=== PATIENT | female | born 1990 | race Caucasian/White ===

== ENCOUNTER 2019-02-05 18:05 | Emergency (ER) | payer SELFPAY ==
[~2019-02-05] VITALS: Ht 170.2 cm; Wt 63.6 kg
[2019-02-05 18:08] VITALS: Ht 170.2 cm; Wt 63.6 kg
[2019-02-05 19:11] LABS: BASOPHILS 1.1 % (0-2); EOSINOPHILS 0.5 % (0-7); HEMATOCRIT 38.3 % (36.0-48.0); HEMOGLOBIN 13.1 g/dL (12-16); LYMPHOCYTES 43.8 % (15-50); MCH 30.3 pg (26.0-34.0); MCHC 34.2 g/dL (31.0-37.0); MCV 88.5 fL (80.0-100.0); MEAN PLATELET VOLUME 12.2 fL (7.4-10.4); MONOCYTES 9.8 % (2-11); NEUTROPHILS 44.8 % (40-80); PLATELET COUNT 196 10x3/uL (130-400); RBC 4.33 10x6/uL (4.00-5.40); RDW 12.6 % (11.5-14.5); WBC 3.7 10x3/uL (4.8-10.8)
[2019-02-05 19:27] LABS: APPEARANCE CLEAR (CLEAR); BILIRUBIN NEGATIVE (NEGATIVE); COLOR YELLOW (YELLOW); GLUCOSE NEGATIVE (NEGATIVE); KETONE SMALL mg/dL (NEGATIVE); NITRITE NEGATIVE (NEGATIVE); PROTEIN NEGATIVE (NEGATIVE); UROBILINOGEN NORMAL (NORMAL)
[2019-02-05 19:30] LABS: ALBUMIN 4.2 g/dL (3.4-5.0); ALKALINE PHOSPHATASE 85 U/L (46-116); ALT (SGPT) 13 U/L (10-68); BILIRUBIN - TOTAL 0.62 mg/dL (0.2-1.3); CALC OSMOLALITY 275 mosm/kg (275-300); CARBON DIOXIDE 23.7 mmol/L (21.0-32.0); CHLORIDE - SERUM 104 mmol/L (98-107); CREATININE - SERUM 0.7 mg/dL (0.6-1.3); GLUCOSE 84 mg/dL (74-106); LIPASE 123 U/L (73-393); PROTEIN - SERUM 7.6 g/dL (6.4-8.2); SODIUM 140 mmol/L (136-145); UREA NITROGEN 6 mg/dL (7-18); eGFR NON AFRICAN AMERICAN > 90 mL/min (90-120)
[2019-02-05 19:34] LABS: HCG SERUM NEGATIVE (NEGATIVE)
[2019-02-05] MEDS ORDERED: CHRONULAC30 ML PO (20:44)
[2019-02-05 22:05] VITALS: BP 134/69
== END 2019-02-05 22:07 | disposition home or self-care (01) ==
LOC: D.ER 18:05
PROVIDERS: Family Medicine
DX: R10.31 Right lower quadrant pain (principal); E87.6 Hypokalemia; K58.9 Irritable bowel syndrome, unspecified

== ENCOUNTER 2019-02-06 22:01 | Emergency (ER) | payer SELFPAY ==
[~2019-02-06] VITALS: Ht 170.2 cm; Wt 63.6 kg
[~2019-02-06 22:01] MED LIST: CHRONULAC30 ML PO
[2019-02-06 22:22] VITALS: BP 129/83; Ht 170.2 cm; Wt 63.6 kg
[2019-02-06 23:04] LABS: BASOPHILS 1.1 % (0-2); EOSINOPHILS 0.8 % (0-7); HEMATOCRIT 38.3 % (36.0-48.0); HEMOGLOBIN 13.1 g/dL (12-16); LYMPHOCYTES 41.1 % (15-50); MCH 30.3 pg (26.0-34.0); MCHC 34.2 g/dL (31.0-37.0); MCV 88.7 fL (80.0-100.0); MEAN PLATELET VOLUME 11.9 fL (7.4-10.4); MONOCYTES 12.5 % (2-11); NEUTROPHILS 44.5 % (40-80); PLATELET COUNT 195 10x3/uL (130-400); RBC 4.32 10x6/uL (4.00-5.40); RDW 12.7 % (11.5-14.5); WBC 3.7 10x3/uL (4.8-10.8)
[2019-02-06 23:19] LABS: ALBUMIN 4.1 g/dL (3.4-5.0); ALKALINE PHOSPHATASE 83 U/L (46-116); ALT (SGPT) 15 U/L (10-68); BILIRUBIN - TOTAL 0.41 mg/dL (0.2-1.3); CHLORIDE - SERUM 104 mmol/L (98-107); GLUCOSE 89 mg/dL (74-106); PROTEIN - SERUM 7.4 g/dL (6.4-8.2); SODIUM 143 mmol/L (136-145)
[2019-02-06 23:20] LABS: CALC OSMOLALITY 282 mosm/kg (275-300); CARBON DIOXIDE 30.1 mmol/L (21.0-32.0); CREATININE - SERUM 0.9 mg/dL (0.6-1.3); POTASSIUM - SERUM 3.6 mmol/L (3.5-5.1); UREA NITROGEN 9 mg/dL (7-18); eGFR NON AFRICAN AMERICAN 79 mL/min (90-120)
== END 2019-02-07 00:30 | disposition home or self-care (01) ==
LOC: D.ER 22:01
PROVIDERS: Family Medicine
DX: M62.838 Other muscle spasm (principal); E87.6 Hypokalemia

== ENCOUNTER 2019-02-09 14:22 | Emergency (ER) | payer SELFPAY ==
[~2019-02-09] VITALS: Ht 170.2 cm; Wt 63.6 kg
[2019-02-09 15:07] VITALS: Ht 170.2 cm; Wt 63.6 kg
[2019-02-09 15:24] LABS: APPEARANCE CLEAR (CLEAR); BILIRUBIN NEGATIVE (NEGATIVE); COLOR STRAW (YELLOW); GLUCOSE NEGATIVE (NEGATIVE); KETONE SMALL mg/dL (NEGATIVE); NITRITE NEGATIVE (NEGATIVE); PROTEIN NEGATIVE (NEGATIVE); SPECIFIC GRAVITY 1.005 (1.005-1.020); UROBILINOGEN NORMAL (NORMAL)
[2019-02-09 15:34] LABS: BASOPHILS 0.6 % (0-2); EOSINOPHILS 0 % (0-7); HEMOGLOBIN 13.3 g/dL (12-16); LYMPHOCYTES 37.9 % (15-50); MCH 30.3 pg (26.0-34.0); MCHC 34.1 g/dL (31.0-37.0); MCV 88.8 fL (80.0-100.0); MEAN PLATELET VOLUME 11.6 fL (7.4-10.4); MONOCYTES 9.6 % (2-11); NEUTROPHILS 51.9 % (40-80); PLATELET COUNT 205 10x3/uL (130-400); RBC 4.39 10x6/uL (4.00-5.40); RDW 12.4 % (11.5-14.5); WBC 3.1 10x3/uL (4.8-10.8)
[2019-02-09 16:02] LABS: ALBUMIN 4.3 g/dL (3.4-5.0); ALKALINE PHOSPHATASE 86 U/L (46-116); ALT (SGPT) 14 U/L (10-68); BILIRUBIN - TOTAL 0.68 mg/dL (0.2-1.3); CALC OSMOLALITY 280 mosm/kg (275-300); CALCIUM 9.3 mg/dL (8.5-10.1); CARBON DIOXIDE 33.1 mmol/L (21.0-32.0); CHLORIDE - SERUM 104 mmol/L (98-107); CREATININE - SERUM 0.8 mg/dL (0.6-1.3); GLUCOSE 94 mg/dL (74-106); POTASSIUM - SERUM 3.3 mmol/L (3.5-5.1); PROTEIN - SERUM 7.6 g/dL (6.4-8.2); SODIUM 142 mmol/L (136-145); UREA NITROGEN 6 mg/dL (7-18); eGFR NON AFRICAN AMERICAN 90 mL/min (90-120)
[2019-02-09] MEDS ORDERED: MIRALAX17 GM PO (16:54)
[2019-02-09 17:06] VITALS: BP 118/74
== END 2019-02-09 17:07 | disposition home or self-care (01) ==
LOC: D.ER 14:22
PROVIDERS: Emergency Medicine
DX: R53.1 Weakness (principal); K59.00 Constipation, unspecified; E87.6 Hypokalemia